=== PATIENT | male | born 1980 | race Two or more races ===

== ENCOUNTER → 2022-11-22 | Outpatient (CLI) | payer MEDICAID | END | disposition home or self-care (01) | LOC: XYW 11:03 | PROVIDERS: ATTEND Internal Medicine | DX: Z82.49 Family history of ischemic heart disease and other diseases of the circulatory system (principal) | CPT/HCPCS: 93306 ==

== ENCOUNTER → 2022-12-27 | Outpatient (CLI) | payer MEDICAID ==
[2022-12-27 13:01] LABS: Cholesterol 256 mg/dL (< 200); Triglycerides 154 mg/dL (< 150)
[2022-12-27 13:03] LABS: HDL Cholesterol 46 mg/dL (40-59); LDL Cholesterol 184 mg/dL (< 100)
[2022-12-27 13:08] LABS: Prolactin 10.71 ng/mL (2.8-29.2)
== END | disposition home or self-care (01) ==
LOC: LAB 11:14
PROVIDERS: ATTEND Internal Medicine
DX: K52.9 Noninfective gastroenteritis and colitis, unspecified (principal); R73.03 Prediabetes; E78.5 Hyperlipidemia, unspecified
CPT/HCPCS: 36415; 80061; 82085; 82672; 83036; 84144; 84146; 84403

== ENCOUNTER → 2023-01-02 | Outpatient (CLI) | payer MEDICAID | END | disposition home or self-care (01) | LOC: LAB 07:36 | PROVIDERS: ATTEND Internal Medicine | DX: R73.03 Prediabetes (principal); K52.9 Noninfective gastroenteritis and colitis, unspecified; E78.5 Hyperlipidemia, unspecified | CPT/HCPCS: 82533 ==

== ENCOUNTER → 2023-03-10 | Day surgery (SDC) | payer MEDICAID ==
[2023-03-09 08:31] LABS: Basophils # (auto) 0 10 ^3/uL (0-0.2); Basophils % (auto) 0.7 % (0.0-2.0); Eosinophils # (auto) 0.2 10 ^3/uL (0-0.8); Eosinophils % (auto) 2.3 % (0.0-7.0); Lymphocytes # (auto) 2.7 10 ^3/uL (0.4-5.4); Lymphocytes % (auto) 40.8 % (10.0-50.0); Monocytes # (auto) 0.6 10 ^3/uL (0-1.3); Monocytes % (auto) 8.3 % (0.0-12.0); Neutrophils # (auto) 3.2 10 ^3/uL (1.6-8.6); Neutrophils % (auto) 47.9 % (37.0-80.0); White Blood Cell 6.6 10^3/uL (4.4-10.8)
[2023-03-09 08:32] LABS: Hematocrit 43.8 % (41.0-53.0); Hemoglobin 15.2 g/dL (13.5-17.5); Mean Corpuscular Hemoglobin 31.5 pg (28.0-32.0); Mean Corpuscular Hgb Conc. 34.6 g/dL (32.0-36.0); Red Blood Cells 4.81 10^6/uL (4.5-5.90); Red Cell Distribution Width 13.2 % (11.8-14.3)
[2023-03-09 08:55] LABS: Urine Bacteria NONE SEEN /hpf (None Seen); Urine Blood 1+ /uL (Negative); Urine Specific Gravity 1.027 (1.001-1.035); Urine WBC <1 /hpf (0 - 3)
[2023-03-09 09:01] LABS: INR 0.92 (0.9-1.15); Partial Thromboplastin Time 29.6 sec (24.6-33.4)
[2023-03-09 09:24] LABS: Albumin 3.8 g/dL (3.4-5.0); Calcium 8.9 mg/dL (8.5-10.1); Potassium 3.8 mmol/L (3.5-5.1)
[2023-03-09 09:28] LABS: BUN/Creatinine Ratio 18.1 (10.0-20.0); Bilirubin, Total 0.8 mg/dL (0.2-1.0); Total Protein 7.4 g/dL (6.4-8.2)
[~2023-03-10] VITALS: Ht 167.6 cm; Wt 93.0 kg
[~2023-03-10] MED LIST: ACYC-161 PO; DexAMETHasone SOD PHOS 10MG/1ML VIAL INJ ONE; HYDR-4069 PO; HYDROmorphone HCL 2 MG/ML VL/or syr IV PRN; LABETALOL HCL 5 MG/ML 4ML SYRINGE IV PRN; LIDO5CRE18 EX; LIDOCAINE VISCOUS 2% 15ML UD ONE; MEPERIDINE HCL (25 MG/ML) 1ML VIAL ONE; METH500T22 PO; MIDAZOLAM HCL 2MG/2ML 2ml VIAL (1mg/ml) IV PRN; MIDAZOLAM HCL 2MG/2ML 2ml VIAL (1mg/ml) ONE; MORPHINE SULFATE 4 MG/ML SYR/VIAL IV PRN; ONDANSETRON HCL 4 MG/2 ML VIAL IV PRN; PANT40TA2 PO; PROPOFOL 10 MG/ML 20 ML IV ONE; ePHEDrine SULFATE 50 MG/ML AMP IV PRN; fentaNYL CITRATE 100 MCG/2 ML VL ONE
[2023-03-10 13:56] VITALS: BP 113/74
== END | disposition home or self-care (01) ==
LOC: GI 12:07
PROVIDERS: ATTEND Internal Medicine Gastroenterology
DX: K52.9 Noninfective gastroenteritis and colitis, unspecified (principal); K29.90 Gastroduodenitis, unspecified, without bleeding; K44.9 Diaphragmatic hernia without obstruction or gangrene; K21.9 Gastro-esophageal reflux disease without esophagitis; K63.5 Polyp of colon; K64.8 Other hemorrhoids; Z79.891 Long term (current) use of opiate analgesic; Z98.890 Other specified postprocedural states
CPT/HCPCS: 36415; 43239; 45380; 80053; 81001; 85025; 85610; 85730; 88305; 88342; J1100; J2175; J2250; J2704; J3010; J7030

== ENCOUNTER → 2023-03-28 | Outpatient (CLI) | payer MEDICAID ==
[~2023-03-28] MED LIST changes: -ACYC-161 PO; +ACYC400T16 PO; -DexAMETHasone SOD PHOS 10MG/1ML VIAL INJ ONE; -HYDROmorphone HCL 2 MG/ML VL/or syr IV PRN; -LABETALOL HCL 5 MG/ML 4ML SYRINGE IV PRN; -LIDOCAINE VISCOUS 2% 15ML UD ONE; -MEPERIDINE HCL (25 MG/ML) 1ML VIAL ONE; +METH-1181 PO; -METH500T22 PO; -MIDAZOLAM HCL 2MG/2ML 2ml VIAL (1mg/ml) IV PRN; -MIDAZOLAM HCL 2MG/2ML 2ml VIAL (1mg/ml) ONE; -MORPHINE SULFATE 4 MG/ML SYR/VIAL IV PRN; -ONDANSETRON HCL 4 MG/2 ML VIAL IV PRN; -PROPOFOL 10 MG/ML 20 ML IV ONE; -ePHEDrine SULFATE 50 MG/ML AMP IV PRN; -fentaNYL CITRATE 100 MCG/2 ML VL ONE
[2023-03-28 11:05] LABS: Urine Bacteria NONE SEEN /hpf (None Seen); Urine Blood TRACE /uL (Negative); Urine Mucus FEW (None Seen); Urine Specific Gravity 1.031 (1.001-1.035); Urine WBC 1 /hpf (0 - 3)
== END | disposition home or self-care (01) ==
LOC: LAB 10:31
PROVIDERS: ATTEND Internal Medicine
DX: E78.5 Hyperlipidemia, unspecified (principal); K52.9 Noninfective gastroenteritis and colitis, unspecified; R73.03 Prediabetes; N62 Hypertrophy of breast
CPT/HCPCS: 81001; 82088; 82570; 84156; 86592; 86703

== ENCOUNTER → 2023-06-19 | Outpatient (CLI) | payer MEDICAID ==
[2023-06-19 11:17] LABS: Albumin 3.7 g/dL (3.4-5.0)
[2023-06-19 11:20] LABS: Bilirubin, Direct 0.1 mg/dL (0-0.2); Bilirubin, Total 0.5 mg/dL (0.2-1.0); Total Protein 7.3 g/dL (6.4-8.2)
== END | disposition home or self-care (01) ==
LOC: LAB 10:12
PROVIDERS: ATTEND Internal Medicine
DX: E78.5 Hyperlipidemia, unspecified (principal); R73.03 Prediabetes
CPT/HCPCS: 36415; 80061; 80076; 83036

== ENCOUNTER 2023-07-02 15:49 | Emergency (ER) | payer MEDICAID ==
[~2023-07-02] VITALS: Ht 167.6 cm; Wt 82.8 kg
[2023-07-02] MEDS ORDERED: IBUP1TAB5 PO ×3 (16:10→17:05)
[2023-07-02] MEDS ORDERED: AMOX500T3 PO ×3 (16:10→17:05)
[2023-07-02] MEDS ORDERED: OFL50TS OT ×3 (16:10→17:05)
[2023-07-02] MEDS ORDERED: cefTRIAXone SOD 1,000 MG VL IM ONE (16:15)
[2023-07-02] MEDS ORDERED: DexAMETHasone SOD PHOS 10MG/1ML VIAL INJ IM ONE (16:15)
[2023-07-02 16:33] VITALS: BP 123/76; PULSE 79; RESP 16; TEMP 97.8; O2SAT 99
== END 2023-07-02 16:57 | disposition home or self-care (01) ==
LOC: ER 15:49
DX: H66.93 Otitis media, unspecified, bilateral (principal); J03.90 Acute tonsillitis, unspecified; F17.210 Nicotine dependence, cigarettes, uncomplicated; Z79.2 Long term (current) use of antibiotics; Z79.1 Long term (current) use of non-steroidal anti-inflammatories (NSAID); Z79.899 Other long term (current) drug therapy
CPT/HCPCS: 96372; 99284; J0696; J1100

== ENCOUNTER → 2023-09-26 | Outpatient (CLI) | payer MEDICAID ==
[~2023-09-26] MED LIST changes: +AMOX500T3 PO; +IBUP1TAB5 PO; +OFL50TS OT
[2023-09-27 22:06] LABS: Chlamydia Trachomatis, NAA Negative (Negative); Neisseria gonorrhoeae, NAA Negative (Negative)
== END | disposition home or self-care (01) ==
LOC: LAB 14:47
PROVIDERS: ATTEND Internal Medicine
DX: N48.89 Other specified disorders of penis (principal); K62.89 Other specified diseases of anus and rectum; R73.03 Prediabetes
CPT/HCPCS: 36415; 80074; 83036; 86592; 86703

== ENCOUNTER 2023-10-08 14:54 | Emergency (ER) | payer MEDICAID ==
[~2023-10-08] VITALS: Ht 167.6 cm; Wt 84.2 kg
[2023-10-08] MEDS ORDERED: KETOROLAC TROMETH 30 MG/ML 1ML VIAL IM ONE (16:30)
[2023-10-08 17:23] LABS: Basophils # (auto) 0 10 ^3/uL (0-0.2); Basophils % (auto) 0.6 % (0.0-2.0); Eosinophils # (auto) 0.1 10 ^3/uL (0-0.8); Eosinophils % (auto) 1.1 % (0.0-7.0); Hematocrit 44.2 % (41.0-53.0); Hemoglobin 14.7 g/dL (13.5-17.5); Lymphocytes # (auto) 1.6 10 ^3/uL (0.4-5.4); Lymphocytes % (auto) 23.6 % (10.0-50.0); Mean Corpuscular Hemoglobin 30.6 pg (28.0-32.0); Mean Corpuscular Hgb Conc. 33.3 g/dL (32.0-36.0); Mean Corpuscular Volume 91.8 fL (80.0-100.0); Monocytes # (auto) 0.9 10 ^3/uL (0-1.3); Neutrophils # (auto) 4.1 10 ^3/uL (1.6-8.6); Neutrophils % (auto) 60.7 % (37.0-80.0); Red Blood Cells 4.81 10^6/uL (4.5-5.90); Red Cell Distribution Width 13.2 % (11.8-14.3); White Blood Cell 6.7 10^3/uL (4.4-10.8)
[2023-10-08 18:41] LABS: Rapid Influenza A Negative (Negative); Rapid Influenza B Negative (Negative)
[2023-10-08 18:50] LABS: COVID19 ANTIGEN SOFIA FIA POSITIVE (NEGATIVE)
[2023-10-08 19:05] LABS: Chloride 105 mmol/L (98-107); Potassium 3.5 mmol/L (3.5-5.1); Sodium 139 mmol/L (136-145)
[2023-10-08 19:06] LABS: Anion Gap 7 (5-15); Calcium 9.3 mg/dL (8.5-10.1); Carbon Dioxide 27 mmol/L (20-30)
[2023-10-08 19:11] LABS: BUN/Creatinine Ratio 7.1 (10.0-20.0); Blood Urea Nitrogen 7 mg/dL (9-23); Glucose 82 mg/dL (74-106)
[2023-10-08 19:25] VITALS: BP 140/85; PULSE 97; RESP 16; TEMP 98.2; O2SAT 98
== END 2023-10-08 19:38 | disposition home or self-care (01) ==
LOC: ER 14:54
DX: U07.1 COVID-19 (principal); E11.9 Type 2 diabetes mellitus without complications; F17.210 Nicotine dependence, cigarettes, uncomplicated; Z79.1 Long term (current) use of non-steroidal anti-inflammatories (NSAID); Z79.2 Long term (current) use of antibiotics; Z79.899 Other long term (current) drug therapy
CPT/HCPCS: 36415; 80048; 85025; 87426; 87804; 96372; 99283; J1885

== ENCOUNTER → 2024-03-12 | Outpatient (CLI) | payer MEDICAID ==
[2024-03-12 11:42] LABS: Urine Bacteria None Seen /hpf (None Seen)
[2024-03-12 12:11] LABS: Basophils # (auto) 0 10 ^3/uL (0-0.2); Basophils % (auto) 0.5 % (0.0-2.0); Eosinophils # (auto) 0.1 10 ^3/uL (0-0.8); Eosinophils % (auto) 1.7 % (0.0-7.0); Hemoglobin 15.2 g/dL (13.5-17.5); Lymphocytes # (auto) 2.9 10 ^3/uL (0.4-5.4); Lymphocytes % (auto) 48.8 % (10.0-50.0); Mean Corpuscular Hemoglobin 30.5 pg (28.0-32.0); Mean Corpuscular Volume 92.4 fL (80.0-100.0); Monocytes # (auto) 0.4 10 ^3/uL (0-1.3); Monocytes % (auto) 6.4 % (0.0-12.0); Neutrophils # (auto) 2.5 10 ^3/uL (1.6-8.6); Neutrophils % (auto) 42.6 % (37.0-80.0); Red Blood Cells 4.98 10^6/uL (4.5-5.90); Red Cell Distribution Width 13.5 % (11.8-14.3); White Blood Cell 5.9 10^3/uL (4.4-10.8)
[2024-03-12 12:30] LABS: Alanine Aminotransferase 50 U/L (7-40); Albumin 4.4 g/dL (3.2-4.8); Alkaline Phosphatase 62 U/L (46-116); Anion Gap 5 (5-15); Aspartate Aminotransferase 24 U/L (13-40); BUN/Creatinine Ratio 13.5 (10.0-20.0); Bilirubin, Total 0.9 mg/dL (0.2-1.0); Blood Urea Nitrogen 12 mg/dL (9-23); Calcium 9.3 mg/dL (8.7-10.4); Carbon Dioxide 28 mmol/L (20-30); Chloride 107 mmol/L (98-107); Glucose 115 mg/dL (74-106); Lipase 95 U/L (12-53); Potassium 3.7 mmol/L (3.5-5.1); Sodium 140 mmol/L (136-145); Total Protein 7.5 g/dL (5.7-8.2)
[2024-03-12 12:38] LABS: Urine Blood 1+ /uL (Negative); Urine Clarity Clear (Clear); Urine Color Yellow (Yellow); Urine Mucus FEW (None Seen); Urine Protein, UAD TRACE (Negative); Urine Specific Gravity 1.035 (1.001-1.035); Urine Urobilinogen Normal (Negative); Urine WBC 1 /hpf (0 - 3); Urine pH 5.5 (5.0-9.0)
[2024-03-13 08:06] LABS: Immunoglobulin A 372 mg/dL (90-386)
[2024-03-15 06:06] LABS: Endomysial IgA Antibody Negative (Negative)
[2024-03-16 14:06] LABS: t-Transglutaminase (tTG) IgA <2 U/mL (0-3)
== END | disposition home or self-care (01) ==
LOC: LAB 11:16
PROVIDERS: ATTEND Internal Medicine
DX: K21.9 Gastro-esophageal reflux disease without esophagitis (principal); K63.5 Polyp of colon; R19.7 Diarrhea, unspecified
CPT/HCPCS: 36415; 80053; 81001; 82784; 83036; 83516; 83690; 85025; 85048; 86255; 87045; 87177; 87427

== ENCOUNTER → 2024-07-26 | Outpatient (CLI) | payer MEDICAID ==
[2024-07-26 11:15] LABS: CRP High Sensitivity 0.04 mg/dL (<1.0)
[2024-07-26 11:21] LABS: Erythrocyte Sedimentation Rate 2 mm/hr (0-20)
[2024-07-26 11:41] LABS: Uric Acid 5.4 mg/dL (3.7-9.2)
== END | disposition home or self-care (01) ==
LOC: LAB 10:06
PROVIDERS: ATTEND Internal Medicine
DX: K21.9 Gastro-esophageal reflux disease without esophagitis (principal); M25.532 Pain in left wrist
CPT/HCPCS: 36415; 84443; 84550; 85652; 86141

== ENCOUNTER → 2024-08-14 | Outpatient (CLI) | payer MEDICAID ==
[2024-08-15 08:06] LABS: Free Thyroxine Index 2.4 (1.2-4.9); Thyroxine (T4) 8.3 ug/dL (4.5-12.0)
== END | disposition home or self-care (01) ==
LOC: LAB 15:07
PROVIDERS: ATTEND Internal Medicine Gastroenterology
DX: R19.7 Diarrhea, unspecified (principal)
CPT/HCPCS: 36415; 84443; 86003

== ENCOUNTER → 2024-09-06 | Outpatient (CLI) | payer MEDICAID ==
[2024-09-07 08:06] LABS: Complement C3 146 mg/dL (82-167); Rheumatoid Arthritis Factor <10.0 IU/mL (<14.0); Thyroid Peroxidase (TPO) Ab <9 IU/mL (0-34)
[2024-09-07 10:07] LABS: Anti-Nuclear Antibody Direct Negative (Negative); Anti-dsDNA Antibody <1 IU/mL (0-9); Antiscleroderma-70 Antibody <0.2 AI (0.0-0.9); RNP Antibody <0.2 AI (0.0-0.9); Sjogren's Anti-SS-A Antibody <0.2 AI (0.0-0.9); Sjogren's Anti-SS-B Antibody <0.2 AI (0.0-0.9); Smith Antibody <0.2 AI (0.0-0.9)
[2024-09-09 14:06] LABS: Actin (Smooth Muscle) Antibody 4 Units (0-19); Mitochondrial (M2) Antibody <20.0 Units (0.0-20.0)
[2024-09-10 10:07] LABS: Antiparietal Cell Antibody 4.2 Units (0.0-20.0)
[2024-09-10 12:07] LABS: Anti-Striated Muscle Antibody Negative (Neg:<1:100)
== END | disposition home or self-care (01) ==
LOC: LAB 15:44
PROVIDERS: ATTEND Internal Medicine
DX: M25.532 Pain in left wrist (principal)
CPT/HCPCS: 36415; 84443; 86160; 86225; 86235; 86376; 86431

== ENCOUNTER → 2025-01-02 | Outpatient (CLI) | payer MEDICAID ==
[2025-01-02 12:40] LABS: Free T3 3.83 pg/mL (2.3-4.2); Free T4 (Free Thyroxine) 1.5 ng/dL (0.89-1.76)
== END | disposition home or self-care (01) ==
LOC: LAB 11:52
PROVIDERS: ATTEND Internal Medicine
DX: N28.1 Cyst of kidney, acquired (principal); M54.2 Cervicalgia; R73.03 Prediabetes; R10.9 Unspecified abdominal pain
CPT/HCPCS: 36415; 84439; 84443; 84481

== ENCOUNTER → 2025-04-28 | Outpatient (CLI) | payer MEDICAID ==
[2025-04-28 11:24] LABS: Basophils # (auto) 0 10 ^3/uL (0-0.2); Basophils % (auto) 0.8 % (0.0-2.0); Eosinophils # (auto) 0.1 10 ^3/uL (0-0.8); Hematocrit 43.9 % (41.0-53.0); Hemoglobin 14.9 g/dL (13.5-17.5); Lymphocytes % (auto) 41.9 % (10.0-50.0); Mean Corpuscular Hemoglobin 31.2 pg (28.0-32.0); Monocytes # (auto) 0.4 10 ^3/uL (0-1.3); Monocytes % (auto) 7.6 % (0.0-12.0); Neutrophils # (auto) 2.2 10 ^3/uL (1.6-8.6); Neutrophils % (auto) 47.7 % (37.0-80.0); Nucleated Red Blood Cells % 0.1 %; Platelet Count (auto) 257 10^3/uL (140-450); Red Blood Cells 4.78 10^6/uL (4.5-5.90); Red Cell Distribution Width 13.2 % (11.8-14.3); White Blood Cell 4.7 10^3/uL (4.4-10.8)
[2025-04-28 11:39] LABS: Albumin 4.7 g/dL (3.2-4.8); Alkaline Phosphatase 51 U/L (46-116); Anion Gap 7 (5-15); Aspartate Aminotransferase 26 U/L (13-40); Blood Urea Nitrogen 15 mg/dL (9-23); CRP High Sensitivity 0.03 mg/dL (<1.0); Calcium 9.9 mg/dL (8.7-10.4); Carbon Dioxide 26 mmol/L (20-31); Chloride 107 mmol/L (98-107); Cholesterol 173 mg/dL (< 200); Glucose 101 mg/dL (74-106); HDL Cholesterol 51 mg/dL (40-59); Potassium 4.2 mmol/L (3.5-5.1); Sodium 140 mmol/L (136-145); Total Protein 7.3 g/dL (5.7-8.2); Triglycerides 112 mg/dL (< 150)
[2025-04-28 11:44] LABS: Alanine Aminotransferase 44 U/L (7-40); Bilirubin, Total 1.4 mg/dL (0.2-1.0); LDL Cholesterol 111 mg/dL (< 100)
[2025-04-28 12:45] LABS: Erythrocyte Sedimentation Rate 2 mm/hr (0-20)
== END | disposition home or self-care (01) ==
LOC: LAB 10:47
PROVIDERS: ATTEND Internal Medicine
DX: R91.1 Solitary pulmonary nodule (principal); M54.2 Cervicalgia; Z00.00 Encounter for general adult medical examination without abnormal findings; Z79.899 Other long term (current) drug therapy
CPT/HCPCS: 36415; 80053; 80061; 83036; 85025; 85652; 86141

== ENCOUNTER 2025-07-21 14:08 | Outpatient (CLI) | payer MEDICAID ==
[2025-07-21 17:22] LABS: Hepatitis A Total Antibody Positive (Negative)
[2025-07-21 17:23] LABS: Hepatitis B Surface Antigen Negative (Negative); Hepatitis C Antibody Negative (Negative)
[2025-07-22 12:36] LABS: RAPID PLASMA REAGIN QUANT 1:4 Titer (NONREACTIVE)
[2025-07-23 02:07] LABS: Chlamydia Trachomatis, NAA Negative (Negative); Neisseria gonorrhoeae, NAA Negative (Negative)
== END 2025-07-21 17:00 | disposition home or self-care (01) ==
LOC: LAB 14:08
PROVIDERS: ATTEND Internal Medicine
DX: Z11.3 Encounter for screening for infections with a predominantly sexual mode of transmission (principal)
CPT/HCPCS: 36415; 86592; 86593; 86695; 86696; 86703; 86704; 86706; 86708; 86780; 86803; 87340

== ENCOUNTER 2025-07-24 06:05 | Day surgery (SDC) | payer MEDICAID ==
[2025-07-23 12:30] LABS: Urine Protein, UAD Negative (Negative)
[2025-07-23 12:45] LABS: Alanine Aminotransferase 30 U/L (7-40); Alkaline Phosphatase 56 U/L (46-116); Anion Gap 8 (5-15); BUN/Creatinine Ratio 11.6 (10.0-20.0); Blood Urea Nitrogen 11 mg/dL (9-23); Calcium 9.7 mg/dL (8.7-10.4); Carbon Dioxide 27 mmol/L (20-31); Chloride 105 mmol/L (98-107); Glucose 97 mg/dL (74-106); Potassium 4.9 mmol/L (3.5-5.1); Sodium 140 mmol/L (136-145); Total Protein 7.9 g/dL (5.7-8.2)
[2025-07-23 12:48] LABS: Albumin 4.9 g/dL (3.2-4.8); Bilirubin, Total 1.8 mg/dL (0.2-1.0)
[2025-07-23 12:51] LABS: INR 0.97 (0.9-1.15); Partial Thromboplastin Time 28.5 SEC (24.5-34.5); Prothrombin Time 10.3 sec (9.3-11.8)
[2025-07-23 13:24] LABS: Hematocrit 45.7 % (41.0-53.0); Hemoglobin 15.6 g/dL (13.5-17.5); Mean Corpuscular Hemoglobin 31.6 pg (28.0-32.0); Mean Corpuscular Volume 92.5 fL (80.0-100.0); Nucleated Red Blood Cells % 0.1 %
[~2025-07-24] VITALS: Ht 167.6 cm; Wt 76.2 kg
[~2025-07-24 06:05] MED LIST changes: -AMOX500T3 PO; +FAMO-68 PO; +FEXO-42 PO; -IBUP1TAB5 PO; -LIDO5CRE18 EX; +MULT-1018 PO; -OFL50TS OT; -PANT40TA2 PO; +SEMA2INJ3 SC
[2025-07-24] MEDS ORDERED: KETAMINE 50mg/ML 1ml syringe IV ONE (06:06)
[2025-07-24] MEDS ORDERED: ceFAZolin 2 GM/D5W50ml 50 ML IV ONE (06:17)
[2025-07-24] MEDS ORDERED: HEPARIN SODIUM (PORCINE) 5000 UNITS/ML 1ML VIAL ONE (06:53)
[2025-07-24] MEDS ORDERED: fentaNYL CITRATE 100 MCG/2 ML VL ONE ×2 (07:45→08:37)
[2025-07-24] MEDS ORDERED: HYDROmorphone HCL 2 MG/ML VL/or syr ONE (07:45)
[2025-07-24] MEDS ORDERED: MIDAZOLAM HCL 2MG/2ML 2ml VIAL (1mg/ml) ONE (07:45)
[2025-07-24] MEDS ORDERED: GLYCOPYRROLATE 0.2 MG/ML 1ML VIAL ONE (07:46)
[2025-07-24] MEDS ORDERED: ONDANSETRON HCL 4 MG/2 ML VIAL ONE (07:46)
[2025-07-24] MEDS ORDERED: KETOROLAC TROMETH 30 MG/ML 1ML VIAL ONE (07:46)
[2025-07-24] MEDS ORDERED: ROCURONIUM 10MG/ML 10ML VIAL IV ONE (07:46)
[2025-07-24] MEDS ORDERED: PROPOFOL 10 MG/ML 20 ML IV ONE (07:46)
[2025-07-24] MEDS ORDERED: LIDOCAINE 2%HCL (LOCAL ANESTH.) INJ 20ML MDV ONE (07:46)
[2025-07-24] MEDS: BUPIVACAINE 0.25% INJ 50ML VIAL ONE (08:10)
[2025-07-24] MEDS ORDERED: SUGAMMADEX 200mg/2ml Vial (100MG/ML) IV ONE (08:18)
[2025-07-24 09:05] VITALS: PULSE 118; RESP 21; TEMP 97.8; O2SAT 100
[2025-07-24] MEDS ORDERED: DexmedeTOMIDine 2 ML IV ONE (09:13)
[2025-07-24] MEDS ORDERED: ONDANSETRON HCL 4 MG/2 ML VIAL IV PRN (09:15)
[2025-07-24] MEDS: ACETAMINOPHEN IV 1000 MG/100ML (10MG/ML) IV ONE (09:16)
[2025-07-24] MEDS: ACETAMINOPHEN IV 100 ML IV ONE (09:18)
--- NOTE | 2025-07-24 09:27 | DVHOP2 ---
Operative Report - 2 Report Details Date: 07/24/25 Preop Diagnosis: Symptomatic cholelithiasis Postop Diagnosis: Symptomatic cholelithiasis Surgeon: Ish Acharya MD Payroll Coordinator: Lenard Phan NP Anesthesiologist: Dr. Gil Anesthesia: General Consent: The patient was informed of the risks and benefits of the procedure. These include but are not limited to complications of anesthesia, postoperative infection, incomplete relief of symptoms, recurrence of symptoms, damage to blood vessels, nerves and tendons, deep venous thrombosis, pulmonary embolism and possible need for repeat surgery in the future. Complications: None Estimated Blood Loss: 5 mL Findings: Normal-appearing gallbladder, omental adhesions to gallbladder (thin) Indications for Surgery: Symptomatic gallstones Name of Procedure Performed Laparoscopic cholecystectomy Procedure Details Procedure Details: Upon arriving to the operating room the patient was transferred to the operating table and placed in the supine position with arms extended. General endotracheal anesthesia was induced. Time-out was observed. Patient was prepped and draped in the standard sterile surgical fashion with chlorhexidine. I then made a curvilinear infraumbilical incision and carried it down to fascia. I then grasped the umbilical stalk and walked it down to its base with Keven clamps. I then proceeded to gained entry into the peritoneal cavity using Jcarlos technique. I then placed a fascial retention stitch in [id number] fashion with 0 Vicryl. I then introduced the Figueroa cannula and insufflated the peritoneal cavity to 15 mmHg with toleration. Camera was then inserted entry site surveyed and no injuries noted. I then placed 3 additional 5 mm trocars under direct vision in the epigastric, area right midclavicular under the ribs and right flank area. I then grasped the fundus of the gallbladder was grasper and elevated cephalad and towards the right shoulder. Gallbladder appeared normal, although it had thin omental adhesions to it. Omental adhesions were taken down both bluntly and with electrocautery. I was then able to identify the infundibulum and this was grasped with another grasper and retracted laterally. Calot triangle was exposed. I then incised the peritoneum on either side of the gallbladder. I then fully skeletonize Callot's triangle and noted 2 structures entering the gallbladder. Cystic duct and cystic artery were fully skeletonized. Critical view of safety was obtained. I then placed 2 5 mm clips proximal on the cystic artery and 1 distal. Cystic duct was then milked for any stones, there were none. I then placed 3 5 mm clips proximal in the cystic duct and 1 distal. I 1st transected the duct and then transected the artery. I then removed the gallbladder from the liver bed with electrocautery. Once the gallbladder was fully removed from the liver bed it was placed in the Endo-Catch bag and removed from the peritoneal cavity through the infraumbilical incision. I had minimal bile spillage from a grasper site no. Fossa and over the liver were serially irrigated until effluent was clear. I then took a look at the gallbladder fossa the were some minimal raw surface oozing that was cauterized. Hemostasis achieved. I then took a look at the clips on the duct and the artery, they were in place. This concluded the intraperitoneal portion of the surgery. All counts complete and correct. I then removed the 3 5 mm trocars u nder direct vision, no bleeding from the abdominal wall. The peritoneal cavity was allowed to desufflate. Fascial retention suture was closed. All skin sites were closed with 4-0 Monocryl and Dermabond. 0.25% Marcaine was used as local anesthetic. Patient tolerated the procedure well and was transferred to PACU in stable condition. Specimen: Gallbladder and contents Condition Stable Disposition Home ISH ASTUDILLO MD Jul 24, 2025 09:27
[2025-07-24] MEDS: HYDROmorphone HCL 2 MG/ML VL/or syr IV PRN (10:20)
[2025-07-24 11:50] VITALS: BP 111/67; PULSE 77; RESP 13; O2SAT 97
== END 2025-07-24 12:20 | disposition home or self-care (01) ==
LOC: SUR 06:05
PROVIDERS: ATTEND Student in an Organized Health Care Education/Training Program
DX: K80.10 Calculus of gallbladder with chronic cholecystitis without obstruction (principal); K66.0 Peritoneal adhesions (postprocedural) (postinfection); Z79.899 Other long term (current) drug therapy; Z98.890 Other specified postprocedural states; Z88.8 Allergy status to other drugs, medicaments and biological substances
CPT/HCPCS: 36415; 47562; 80053; 81001; 85025; 85610; 85730; 86850; 86900; 86901; 87086; 88304; J0690; J0694; J1100; J1171; J1885; J2250; J2405; J2704; J3010; J0131; J3490

== ENCOUNTER → 2025-10-29 | Outpatient (CLI) | payer MEDICAID ==
[2025-10-29 11:38] LABS: Triglycerides 89 mg/dL (< 150)
[2025-10-29 11:40] LABS: Cholesterol 166 mg/dL (< 200)
[2025-10-29 11:46] LABS: HDL Cholesterol 61 mg/dL (40-59)
== END | disposition home or self-care (01) ==
LOC: LAB 10:29
PROVIDERS: ATTEND Internal Medicine
DX: Z00.00 Encounter for general adult medical examination without abnormal findings (principal)
CPT/HCPCS: 36415; 80061; 84443; 86735; 86787